=== PATIENT | male | born 1965 ===

== ENCOUNTER 2016-03-02 05:11 | Inpatient (IN) | payer BC ==
[~2016-03-02] VITALS: Ht 172.7 cm; Wt 85.7 kg
[2016-03-02] VITALS (15 sets, daily range): BP systolic 96–126; BP diastolic 42–78
[~2016-03-02 05:11] MED LIST: NKM
[2016-03-02] MEDS ORDERED: LR 1000ml 1,000 ML IVLG SCH (06:46)
--- NOTE | 2016-03-02 06:46 | Anethesia Preoperative Eval ---
Anesthesia Pre-op PMH/ROS General Date of Evaluation: Mar 02, 2016 Time of Evaluation: 07:46 Anesthesiologist: Petra ASA Score: ASA 1 Mallampati Score Class I : Soft palate, uvula, fauces, pillars visible Class II: Soft palate, uvula, fauces visible Class III: Soft palate, base of uvula visible Class IV: Only hard plate visible Mallampati Classification: Class II Surgeon: Fernando Diagnosis: Back Pain Surgical Procedure: R L4-5 Laminectomy, Discetomy Anesthesia History: none Family History: no anesthesia problems Allergies: Coded Allergies: No Known Allergies (Unverified , 03/01/16) Medications: see eMAR Past Medical History Cardiovascular: Denies: CAD, HTN, NM, arrhythmia, other, valve dz Pulmonary: Denies: COPD, LANI, asthma, other Gastrointestinal/Genitourinary: Denies: CRI, ESRD, GERD, other Neurologic/Psychiatric: Denies: CVA, TIA, dementia, depression/anxiety, other Endocrine: Denies: DM, hypothyroidism, other, steroids HEENT: Denies: CURYUNG (L), CUR[place]G (R), cataract (L), cataract (R), glaucoma, other Hematology/Immune: Denies: DVT, anemia, bleeding disorder, other Musculoskeletal/Integumentary: Reports: DDD - Back Pain Anesthesia Pre-op Phys. Exam Physician Exam Last Vital Signs Date Time Temp Pulse Resp B/P Pulse Ox O2 Delivery O2 Flow Rate FiO2 03/02/16 05:56 97.5 75 17 126/78 98 Room Air Constitutional: NAD Neurologic: CN 2-12 intact Cardiovascular: RRR Respiratory: CTA Gastrointestinal: S/NT/ND Airway Exam Mallampati Score: Class II MO: full ROM: full Teeth: intact Anesthesia Pre-op A/P Risk Assessment & Plan Assessment: ASA 1 Plan: GA, BIS, Glidescope Status Change Before Surgery: No Pre-Antibiotics Dru Grams Ancef IV Given Within 1 Hr of Incision: Yes Time Given: 08:06 Butch Lambert MD Mar 02, 2016 06:46
--- NOTE | 2016-03-02 06:49 | Immediate Post-Op Evaluation ---
Immediate Post-Op Evalulation Immediate Post-Op Evalulation Procedure: R L4-5 Laminectomy, Discetomy Date of Evaluation: Mar 02, 2016 Time of Evaluation: 10:34 IV Fluids: 1000 LR Blood Products: 0 Estimated Blood Loss: 500 Urinary Output: 0 Blood Pressure Systolic: 114 Blood Pressure Diastolic: 72 Pulse Rate: 93 Respiratory Rate: 16 O2 Sat by Pulse Oximetry: 100 Temperature (Fahrenheit): 97.2 Pain Score (1-10): 3 Nausea: No Vomiting: No Complications 0 Patient Status: awake, reacts, patent, extubated, none Hydration Status: adequate Dru Grams Ancef IV Given Within 1 Hr of Incision: Yes Time Given: 08:06 Butch Lambert MD Mar 02, 2016 06:49
[2016-03-02] MEDS ORDERED: Thrombin 5000 units TOPIC ONE (06:57)
[2016-03-02] MEDS ORDERED: Bupivacaine w/Epi 0.25% 30ml Vial INJ ONE (06:57)
[2016-03-02] MEDS ORDERED: Thrombin 5000 units spray kit TOPIC ONE (06:57)
[2016-03-02] MEDS ORDERED: Gelfoam Absorbable 1gm powder pkt TOPIC ONE (06:58)
[2016-03-02] MEDS ORDERED: Bacitracin 50000 Units Vial ONE (06:58)
[2016-03-02] MEDS ORDERED: Hydromorphone 0.5mg/0.5ml inj IVP PRN (07:00)
[2016-03-02] MEDS ORDERED: Metoclopramide 10mg/2ml Inj IVP PRN ×3 (07:00→13:44)
[2016-03-02] MEDS ORDERED: Ketorolac 30mg Inj IV PRN (07:00)
[2016-03-02] MEDS ORDERED: fentaNYL 100 mcg/2 mL IV PRN (07:00)
[2016-03-02] MEDS ORDERED: Labetalol 5mg/ml 20ml vial IV PRN (07:00)
[2016-03-02] MEDS ORDERED: Atropine Inj 1mg/10ml Syr IV PRN (07:00)
[2016-03-02] MEDS ORDERED: Norco 7.5mg/325mg tab ORAL PRN ×2 (07:00→10:00)
[2016-03-02] MEDS ORDERED: Midazolam 2mg/2ml Inj IVP PRN (07:00)
[2016-03-02] MEDS ORDERED: DiphenhydrAMINE 50mg/ml Inj IVP PRN (07:00)
[2016-03-02] MEDS ORDERED: Norco 5mg/325mg tab ORAL PRN (07:00)
[2016-03-02] MEDS ORDERED: Meperidine 25mg/ml Inj IV PRN (07:00)
[2016-03-02] MEDS ORDERED: Oxycodone/Acetaminophen 5-325 ORAL PRN (07:00)
[2016-03-02] MEDS ORDERED: LORazepam Inj 2mg/ml 1ml IV PRN (07:00)
[2016-03-02] MEDS ORDERED: Ketorolac 60mg Inj IV PRN (07:00)
[2016-03-02] MEDS ORDERED: Zemuron 50mg/5ml Inj IV ONE (07:45)
[2016-03-02] MEDS ORDERED: Glycopyrrolate 0.2mg/ml 1ml Vial ONE (07:45)
[2016-03-02] MEDS ORDERED: Midazolam 2mg/2ml Inj ONE (07:45)
[2016-03-02] MEDS ORDERED: Dexamethasone 4mg/ml vial ONE (07:45)
[2016-03-02] MEDS ORDERED: LR 1000ml ONE (07:45)
[2016-03-02] MEDS ORDERED: Neostigmine 1mg/ml 10ml Inj ONE (07:45)
[2016-03-02] MEDS ORDERED: fentaNYL 250mcg/5ml ONE (07:45)
[2016-03-02] MEDS ORDERED: Sterile Water Irrig 1000ml IRRIG ONE (07:45)
[2016-03-02] MEDS ORDERED: Propofol 10mg/ml 20ml IV ONE (07:45)
[2016-03-02] MEDS ORDERED: NS Irrig 1000ml ONE (07:45)
--- NOTE | 2016-03-02 08:28 | Pre-Procedure Note/Attestation ---
Pre-Procedure Note/Attestation Complete Prior to Procedure Procedure Narrative: R L45 laminectomy/discectomy Indications for Procedure Pre-Operative Diagnosis: L45 HNP Attestation I attest that I discussed the nature of the procedure; its benefits; risks and complications; and alternatives (and the risks and benefits of such alternatives ), prior to the procedure, with the patient (or the patient's legal reimbursement representative). I attest that, if there was a reasonable possibility of needing a blood transfusion, the patient (or the patient's legal reimbursement representative) was given the [facility] standardized written summary, pursuant to the Shiv Erskine Blood Safety Act ([place] Health and Safety Code # 1645, as amended). I attest that I re-evaluated the patient just prior to the surgery and that there has been no change in the patient's H&P, except as documented below: CHELSEY ARMSTRONG Mar 02, 2016 08:28
[2016-03-02] MEDS ORDERED: Acetaminophen (Non formulary) 1,000 MG/100 ML ML IV SCH (09:15)
[2016-03-02] MEDS ORDERED: Naloxone 0.4mg/ml Inj IVP PRN (10:00)
[2016-03-02] MEDS ORDERED: traMADol 50mg tab ORAL PRN (10:00)
[2016-03-02] MEDS ORDERED: HYDROmorphone 1mg/ml Carpuject SUBQ PRN (10:00)
[2016-03-02] MEDS ORDERED: Milk of Magnesia 30ml Ud ORAL PRN (10:00)
[2016-03-02] MEDS ORDERED: HYDROmorphone 1mg/ml Carpuject IVP PRN (10:00)
--- NOTE | 2016-03-02 10:06 | Brief Operative Note ---
Immediate Post Operative Note Operative Note Pre-op Diagnosis: L45 HNP Procedure: l45 laminectomy and microdiscectomy Post-op Diagnosis: same as pre-op Findings: consistent w/pre-op dx studies Surgeon: wendy Pattern Illustrator: mary GIBSON Anesthesiologist: Michael Anesthesia: general Specimen: none Complications: none Condition: stable Estimated Blood Loss: volume - 500 Drains: hemovac Implant(s) used?: No CHELSEY ARMSTRONG Mar 02, 2016 10:06
--- NOTE | 2016-03-02 11:36 | Diagnostic Imaging Report ---
Indications: Back and right lower extremity pain, lumbar localization for decompression by Dr. King Technique: Procedure including fluoroscopy performed by Dr. King. Portable intraoperative lateral spot film image of the lumbar spine performed Findings: Comparison: None Surgical implement overlying the posterior elements at the L4-5 level. IMPRESSION: Intraoperative changes as described
[2016-03-02] MEDS: D5 1/2NS 1,000 ML IV SCH (14:30)
[2016-03-02] MEDS: Pericolace tab ORAL SCH (17:11)
[2016-03-02] MEDS: Norco 7.5mg/325mg tab ORAL PRN (21:06)
--- NOTE | 2016-03-02 21:17 | Operative Note - Dictated ---
DATE OF OPERATION: 03/02/2016 PREOPERATIVE DIAGNOSES: L4-5 disk extrusion with radiculopathy, right lower extremity and partial footdrop. POSTOPERATIVE DIAGNOSES: L4-5 disk extrusion with radiculopathy, right lower extremity, and partial footdrop. PROCEDURE: 1. Hemilaminectomy L4-L5, right side. 2. Partial medial facetectomy L4-L5. 3. Removal of extruded disk fragment L4-L5. 4. Neurodiagnostic monitoring. 5. Use of fluoroscopy. 6. Use of operating microscope. SURGEON: Ahasn King M.D. KENO ATTENDANT: DUSTIN Sharma. ANESTHESIA: General endotracheal anesthesia. ANESTHESIOLOGIST: Butch Lambert M.D. ESTIMATED BLOOD LOSS: 500 mL. FINDINGS: Extensive epidural vein formation and extensive oozing from a large plexus of epidural veins as well as exceedingly large extruded disk fragments within the foramen and proximally with proximity to the pedicle at L4. INDICATIONS: The patient is a very pleasant gentleman with several weeks of absolutely intractable pain down the right lower extremity with progressive weakness. He came in after an MRI was performed confirming a large disk extrusion at the L4-L5 level. RISK NOTE: The patient was explained in detail the risks and benefits of surgery to include, but not be limited to those of bleeding, infection, damage to nerves, vessels, tendons, anesthetic risk, allergic reaction, aspiration, and possibly . The patient understood and wished to proceed. I did specifically describe the potential risk that the nerve root weakness down the right lower extremity may not improve. The patient understood and wished to proceed with surgical intervention based on his pain level as well as the progressive weakness in his right lower extremity. OPERATIVE PROCEDURE IN DETAIL: The patient was taken to the operative suite. After general endotracheal anesthesia was obtained, he was turned prone onto a Timmy frame. All bony prominences were well padded. The back was prepped and draped in usual sterile fashion. Spinal needles were placed and it wa felt to be the L4-L5 level and this was radiographically confirmed with fluoroscopy. At this point, skin was infiltrated with Marcaine with epinephrine. The incision was carried out at the spinous process of L4. Subperiosteal dissection was carried out identifying the L4-5 interspace. Fluoroscopic images confirmed L4-5 position. At this point, a self-retaining Jimenes retractor was inserted and placed at the L4-L5 level. Operating microscope was brought in place. High-speed drill was used to remove the lamina at L4 as well as superior portion of L5. Ligamentum flavum was then removed in a piecemeal fashion using Kerrison rongeurs. The dural sac was then identified and it was gently retracted medially. After some probing, the extruded disk fragment was identified and was removed in a piecemeal fashion. Upon removing this rather large disk fragment, the patient started immediately oozing secondary to a very large plexus of epidural veins. Using meticulous microtechnique, bipolar, FloSeal, thrombin-soaked Gelfoam, and micro patties, we were able to control the epidural bleeding. Copious irrigation was performed and once satisfied ultimately with the hemostasis, the area of the disk was explored. No obvious rent within the disk was encountered, however, there was a portion of the posterior longitudinal ligament, which had elevated off of the posterior vertebral body on the right side, which is consistent with likely where the disk had extruded through. At this point, it was elected not to violate the disk as the remainder of the posterior longitudinal ligament and the disk architecture appeared to be intact without obvious rents. At this point, copious irrigation was performed. Meticulous hemostasis was obtained. The fascia was repaired using #1 Vicryl, subcutaneous closure using 2-0 Vicryl, Dermabond was applied, and sterile dressing was applied. Please note that due to the extensive oozing from this level from the epidural veins, there was concern that postoperatively if the patient were to cough or perform other Valsalva-type maneuver, this would result in epidural hemorrhage and therefore it was elected to place a medium-sized Hemovac drain deep to the fascia. The patient was then turned onto his back, awakened, extubated, and transferred to recovery room in stable condition, able to flex and extend his toes. Sponge and needle counts were correct at the end of procedure. Ahsan King M.D. DR: OPAL JOB#: [id number] CC:
[2016-03-03] VITALS: BP 93/55
[2016-03-03 04:00] VITALS: BP 95/57
[2016-03-03] MEDS: Norco 5mg/325mg tab ORAL PRN ×2 (07:07→13:58)
--- NOTE | 2016-03-03 07:13 | 48 Hour Post Anesthesia Eval ---
Post Anesthesia Evaluation Procedure: R L4-5 Laminectomy, Discetomy Date of Evaluation: Mar 03, 2016 Time of Evaluation: 07:01 Blood Pressure Systolic: 95 0: 57 Pulse Rate: 75 Respiratory Rate: 18 Temperature (Fahrenheit): 96 O2 Sat by Pulse Oximetry: 96 Airway: patent Nausea: No Vomiting: No Pain Intensity: 2 Hydration Status: adequate Cardiopulmonary Status: Stable Mental Status/LOC: patient returned to baseline Follow-up Care/Observations: 0 Post-Anesthesia Complications: 0 Follow-up care needed: N/A Butch Lambert MD Mar 03, 2016 07:13
[2016-03-03 08:18] VITALS: BP 106/62
[2016-03-03] MEDS: Pericolace tab ORAL SCH ×2 (09:12→18:46)
[2016-03-03] MEDS: D5 1/2NS 1,000 ML IV SCH ×3 (09:56→20:00)
[2016-03-03 12:36] VITALS: BP 134/78
[2016-03-03 16:17] VITALS: BP 118/65
--- NOTE | 2016-03-03 17:41 | Orthopedic Spine Progress Note ---
Ortho Spine - Progress Note Subjective Symptoms: c/o post-op back pain, improved - as compared to pre-op Objective Vital Signs: Last 24 Hour Vital Signs Date Time Temp Pulse Resp B/P Pulse Ox O2 Delivery O2 Flow Rate FiO2 03/03/16 16:17 98.2 81 18 118/65 97 Room Air 03/03/16 12:36 97.7 65 18 134/78 96 Room Air 03/03/16 08:18 97.7 66 18 106/62 95 Room Air 03/03/16 07:13 75 18 96 03/03/16 04:00 96.0 75 18 95/57 96 Room Air 03/03/16 00:00 96.0 77 18 93/55 96 Room Air 03/02/16 22:05 97.7 03/02/16 20:32 97.7 52 18 96/59 96 Room Air I&O: Intake and Output 03/02/16 03/03/16 19:00 07:00 Intake Total 2110 ml 480 ml Output Total 20 ml 5 ml Balance 2090 ml 475 ml Intake Oral 260 ml 480 ml IV Total 1850 ml Output Drainage Total 5 ml Estimated Blood Loss 20 ml # Voids 1 Wound: clean, intact Drains: hemovac Neuro Status: normal Assessment Procedure Performed: l45 laminectomy and microdiscectomy Plan Plan: PT, pain management, d/c drain, discharge to home CHELSEY ARMSTRONG Mar 03, 2016 17:41
[2016-03-03] MEDS: Norco 7.5mg/325mg tab ORAL PRN ×2 (18:52→20:39)
[2016-03-03 20:00] VITALS: BP 114/68
--- NOTE | 2016-03-04 11:27 | Discharge Summary ---
Discharge Summary Hospital Course Date of Admission Mar 02, 2016 at 05:11 Date of Discharge Mar 03, 2016 at 21:45 Admitting Diagnosis HPI Gabriel Moore is a 51 year old male who was admitted on Mar 02, 2016 at 05:11 for Back Pain Hospital Course [id number] Discharge Discharge Disposition Patient was discharged to Home (01) Discharge Diagnoses: Kay Braswell NP Mar 04, 2016 11:27
--- NOTE | 2016-03-05 02:58 | Discharge Summary 2 SIG ---
DATE OF ADMISSION: 03/02/2016 DATE OF DISCHARGE: 03/03/2016 BRIEF HOSPITAL COURSE: The patient is a pleasant 51-year-old male with several weeks of subsequently intractable pain down the right lower extremity with progressive weakness. He came in after MRI confirmed a large disc extrusion at the level of L4-L5. On 03/02/2016, the patient underwent hemilaminectomy on the right L4-L5, partial medial facetectomy on L4-L5, removal of extruded disc fragment on L4- L5 with neurodiagnostic monitoring, use of fluoroscopy and operating microscope. He tolerated the procedure well. Postoperatively, he was given pain management. He underwent physical therapy, occupational therapy. Diet was advanced and was ambulating well. Pain was controlled. He was provided raised toilet seat and was discharged home. FINAL DIAGNOSES: 1. L4-L5 disc extrusion with radiculopathy and right lower extremity partial footdrop status post right L4-L5 laminectomy with diskectomy. Ahsan King M.D. I have been assigned to dictate discharge summary on this account and I was not involved in the patient's management. Kay Braswell N.P. DR: WOO JOB#: [id number] CC: DEE
== END 2016-03-03 21:45 | disposition home or self-care (01) | DRG 518 ==
LOC: SDSOVERFLO 05:11 → 3E 12:35
DX: M51.16 Intervertebral disc disorders with radiculopathy, lumbar region (principal); I62.1 Nontraumatic extradural hemorrhage; M21.371 Foot drop, right foot
CPT/HCPCS: 36415; 72020; 76001; 86850; 86900; 86901; 87081; 94003; 94150; C9399; J2250; J2405; J2710